=== PATIENT | male | born 1960 | race Hispanic/Latino ===

== ENCOUNTER 2021-12-19 06:25 | Day surgery (SDC) | payer OTHER ==
[2021-12-18 10:37] VITALS: BP 186/77
[2021-12-19] VITALS (16 sets, daily range): BP systolic 128–163; BP diastolic 63–85
[~2021-12-19] VITALS: Ht 177.8 cm; Wt 134.0 kg
[~2021-12-19 06:25] MED LIST: AMLO-258 PO; ATOR20TA65 PO; CALC-1009 PO; CHOL200026 PO; CYAN1TAB44 PO; FERR-82 PO; HYDR100T27 PO; METO2.5T2 PO; METO25TA6 PO; RANO10003 PO; [UNRECOGNIZED DRUG - OTHER] PO
[2021-12-19] MEDS ORDERED: LACTATED RINGERS 1000ML 1,000 ML IV ONE (06:34)
[2021-12-19 06:50] LABS: BASOPHILS % (AUTO) 0.2 % (0.0-5.0); HEMATOCRIT 34.5 % (42-54); LYMPHOCYTES % (AUTO) 16.7 % (21.0-51.0); MEAN CORPUSCULAR HEMOGLOBIN 30.5 pg (27.0-33.0); MEAN CORPUSCULAR HGB CONC 31.9 g/dL (32.0-36.0); MEAN CORPUSCULAR VOLUME 95.6 fL (79-99); MONOCYTES % (AUTO) 7.4 % (3.0-13.0); NEUTROPHILS % (AUTO) 70.9 % (40.0-77.0); PLATELET COUNT (AUTO) 173 K/uL (130-400); RED BLOOD CELL COUNT(AUTO) 3.61 MIL/uL (4.50-6.20); RED CELL DISTRIBUTION WIDTH 13.6 % (11.0-15.5); WHITE BLOOD COUNT (AUTO) 11.8 K/uL (4.8-10.8)
[2021-12-19] MEDS ORDERED: EPINEPHRINE 1 MG/ML 30ML VIAL IJ ONE (07:08)
[2021-12-19] MEDS ORDERED: LIDOCAINE PF 100MG/5ML (2%) SYRINGE 5ML ONE (07:33)
[2021-12-19] MEDS ORDERED: ROCURONIUM 10MG/1ML SYR 10 MG/ML ML ONE (07:33)
[2021-12-19] MEDS ORDERED: MIDAZOLAM HCL 1 MG/ML 2ML VIAL ONE (07:33)
[2021-12-19] MEDS ORDERED: SUCCINYLCHOLINE 200MG/10ML SYR ONE (07:33)
[2021-12-19] MEDS ORDERED: FENTANYL CITRATE PF 50 MCG/1 ML 2ML VIAL ONE (07:33)
[2021-12-19] MEDS ORDERED: PROPOFOL 10 MG/ML 20ML VIAL IV ONE (07:33)
[2021-12-19] MEDS ORDERED: SUGAMMADEX SODIUM 200 MG/2 ML VIAL IV ONE (07:51)
[2021-12-19] MEDS ORDERED: MEPERIDINE-PF 25 MG/ML SYG ONE (08:05)
== END 2021-12-19 09:35 | disposition home or self-care (01) ==
LOC: DAH 06:25
PROVIDERS: ATTEND Otolaryngology Plastic Surgery within the Head & Neck
DX: R49.0 Dysphonia (principal); Z20.822 Contact with and (suspected) exposure to COVID-19; J38.3 Other diseases of vocal cords; I13.0 Hypertensive heart and chronic kidney disease with heart failure and stage 1 through stage 4 chronic kidney disease, or unspecified chronic kidney disease; N18.4 Chronic kidney disease, stage 4 (severe); Z79.899 Other long term (current) drug therapy; Z87.891 Personal history of nicotine dependence; Z88.8 Allergy status to other drugs, medicaments and biological substances
CPT/HCPCS: 31536; 36415; 85025; 87635; A4215; A4221; A4222; A4223; A4649; A4663; C9803; J0171; J0330; J2001; J2175; J2250; J2704; J3010; J7120

== ENCOUNTER 2022-06-18 11:35 | Emergency (ER) | payer OTHER ==
[2022-06-18] MEDS ORDERED: BACITRACIN 1 EACH PACKET TP ONE (12:43)
[2022-06-18] MEDS ORDERED: BACITRACIN 28.4 GM OINT TP ONE (13:00)
[2022-06-18] MEDS ORDERED: TETANUS/DIPHTHERIA TOXOID [ADULT] 0.5 ML VIAL IM ONE (13:00)
[2022-06-18] MEDS ORDERED: ACETAMINOPHEN 500 MG TABLET PO ONE (13:00)
[2022-06-18] MEDS ORDERED: BACI30OI6 TP (13:46)
[2022-06-18 14:38] VITALS: BP 129/69
== END 2022-06-18 14:49 | disposition home or self-care (01) ==
LOC: EDH 11:35
DX: S80.12XA Contusion of left lower leg, initial encounter (principal); R51.9 Headache, unspecified; J32.9 Chronic sinusitis, unspecified; I25.10 Atherosclerotic heart disease of native coronary artery without angina pectoris; I11.0 Hypertensive heart disease with heart failure; I50.9 Heart failure, unspecified; Z79.899 Other long term (current) drug therapy; Z88.1 Allergy status to other antibiotic agents; Z88.8 Allergy status to other drugs, medicaments and biological substances; W19.XXXA Unspecified fall, initial encounter; Y93.89 Activity, other specified; Y92.89 Other specified places as the place of occurrence of the external cause; Y99.8 Other external cause status
CPT/HCPCS: 70450; 71045; 72125; 73562; 73590; 90471; 90714; 93005

== ENCOUNTER 2022-12-11 10:56 | Day surgery (SDC) | payer OTHER ==
[2022-12-10 09:25] LABS: MEAN CORPUSCULAR HEMOGLOBIN 31.8 pg (27.0-33.0); MEAN CORPUSCULAR HGB CONC 33.6 g/dL (32.0-36.0); MEAN CORPUSCULAR VOLUME 94.5 fL (79-99); RED BLOOD CELL COUNT(AUTO) 3.81 MIL/uL (4.50-6.20); RED CELL DISTRIBUTION WIDTH 13.9 % (11.0-15.5); WHITE BLOOD COUNT (AUTO) 8.2 K/uL (4.8-10.8)
[2022-12-10 09:44] LABS: CREATININE 4.2 mg/dL (0.5-1.5); POTASSIUM 3.9 mmol/L (3.5-5.1)
[2022-12-10 09:50] LABS: INR 0.97 (0.85-1.15); PROTHROMBIN TIME 10.6 SEC (9.6-11.6)
[2022-12-10 09:51] LABS: PARTIAL THROMBOPLASTIN TIME 28.2 SEC (26.3-35.5)
[2022-12-10 10:14] VITALS: BP 134/64
[2022-12-11] VITALS (18 sets, daily range): BP systolic 120–165; BP diastolic 57–80
[~2022-12-11] VITALS: Ht 177.8 cm; Wt 130.8 kg
[~2022-12-11 10:56] MED LIST changes: +0.9% NACL 500ML IV.SOLN 500 ML IV ONE; +ALBUMIN (HUMAN) 25% 50 ML IV ONE; -CALC-1009 PO; +CALC-866 PO; -CHOL200026 PO; -CYAN1TAB44 PO; -FERR-82 PO; -HYDR100T27 PO; +METO-408 PO; -METO2.5T2 PO; -METO25TA6 PO; -RANO10003 PO; +RANO500T6 PO; +SEVE800T7 PO; +iron PO; +vitamin b12 PO
[2022-12-11] MEDS: CEFAZOLIN SODIUM 2 GM VIAL ONE ×2 (11:16→13:41)
[2022-12-11 11:21] LABS: CREATININE 3.2 mg/dL (0.5-1.5); POTASSIUM 3.7 mmol/L (3.5-5.1)
[2022-12-11] MEDS ORDERED: BUPIVACAINE/PF 0.5% 10ML VIAL ONE (11:37)
[2022-12-11] MEDS ORDERED: LIDOCAINE HCL 1% 20 ML VIAL ONE (11:37)
[2022-12-11] MEDS ORDERED: SUCCINYLCHOLINE 200MG/10ML SYR ONE (12:14)
[2022-12-11] MEDS ORDERED: LIDOCAINE PF 100MG/5ML (2%) SYRINGE 5ML ONE (12:14)
[2022-12-11] MEDS ORDERED: ONDANSETRON 4MG INJ ONE (12:14)
[2022-12-11] MEDS ORDERED: PROPOFOL 10 MG/ML 20ML VIAL IV ONE (12:15)
[2022-12-11] MEDS ORDERED: GLYCOPYRROLATE 1 MG/5 ML SYRINGE ONE (12:15)
[2022-12-11] MEDS ORDERED: MIDAZOLAM HCL 1 MG/ML 2ML VIAL ONE (12:15)
[2022-12-11] MEDS ORDERED: DEXAMETHASONE SOD PHOSPHATE 10MG/ML 1ML VIAL ONE (12:15)
[2022-12-11] MEDS ORDERED: NEOSTIGMINE 5MG/5ML SYR IV ONE ×2 (12:15→14:46)
[2022-12-11] MEDS ORDERED: ROCURONIUM 10MG/1ML SYR 10 MG/ML ML ONE (12:15)
[2022-12-11] MEDS ORDERED: FENTANYL CITRATE PF 50 MCG/1 ML 2ML VIAL ONE (12:16)
[2022-12-11] MEDS ORDERED: IPRATROPIUM 0.5 MG/2.5 ML INH IH ONE (14:58)
[2022-12-11] MEDS ORDERED: SUGAMMADEX SODIUM 200 MG/2 ML VIAL IV SCH (15:15)
== END 2022-12-11 16:35 | disposition home or self-care (01) ==
LOC: DAH 10:56
PROVIDERS: ATTEND Thoracic Surgery (Cardiothoracic Vascular Surgery)
DX: I13.11 Hypertensive heart and chronic kidney disease without heart failure, with stage 5 chronic kidney disease, or end stage renal disease (principal); Z20.822 Contact with and (suspected) exposure to COVID-19; N18.6 End stage renal disease; I25.10 Atherosclerotic heart disease of native coronary artery without angina pectoris; E66.9 Obesity, unspecified; Z98.890 Other specified postprocedural states; Z88.0 Allergy status to penicillin; Z99.2 Dependence on renal dialysis
CPT/HCPCS: 80048 ×2; 85027; 85610; 85730; 86850; 86900; 86901; 87426; 36415 ×2; 71045; 93005; 36821; A6260; A4663; A6207; A4452; J7040; J3010; J0330; J3490 ×2; J1100; J2710 ×2; J2001; J2250; J2704; J2405; P9047; J1644; J0690; G0168; A4649 ×2; C1713 ×2; A4930; A4215; A4223; A4222; A4221